=== PATIENT | female | born 1995 | race Caucasian/White ===

== ENCOUNTER 2018-08-04 21:59 | Emergency (ER) | payer BC, MEDICAID ==
[2018-08-04] MEDS ORDERED: Sodium Chloride 0.9% 1,000 ML IV ONE (22:34)
[2018-08-04] MEDS ORDERED: Ondansetron 4 MG/2 ML SDV IVPUSH ONE (22:34)
--- NOTE | 2018-08-04 22:37 | EDM.PDOC ---
ED HPI GENERAL MEDICAL PROBLEM - General Chief Complaint: Gastrointestinal Problem Stated Complaint: VOMITING AND DIARRHEA Time Seen by Provider: 08/04/18 22:33 - History of Present Illness INITIAL COMMENTS - FREE TEXT/NARRATIVE: HISTORY AND PHYSICAL: History of present illness: Patient 23-year-old female presents with concern of nausea vomiting and diarrhea 2 days no fever chills no vaginal discharge or irregular bleeding urinary symptoms or other complaints patient denies Review of systems: As per history of present illness and below otherwise all systems reviewed and negative. Past medical history: As per history of present illness and as reviewed below otherwise noncontributory. Surgical history: As per history of present illness and as reviewed below otherwise noncontributory. Social history: No reported history of drug or alcohol abuse. Family history: As per history of present illness and as reviewed below otherwise noncontributory. Physical exam: HEENT: Atraumatic, normocephalic, pupils reactive, negative for conjunctival pallor or scleral icterus, mucous membranes dry, throat clear, neck supple, nontender, trachea midline. Lungs: Clear to auscultation, breath sounds equal bilaterally, chest nontender. Heart: S1S2, regular, negative for clicks, rubs, or JVD. Abdomen: Soft, nondistended, nontender. Negative for masses or hepatosplenomegaly. Negative for costovertebral tenderness. Pelvis: Stable nontender. Genitourinary: Deferred. Rectal: Deferred. Extremities: Atraumatic, negative for cords or calf pain. Neurovascular unremarkable. Neuro: Awake, alert, oriented. Cranial nerves II through XII unremarkable. Cerebellum unremarkable. Motor and sensory unremarkable throughout. Exam nonfocal. Diagnostics: UA hCG CBC CMP Therapeutics: Saline 1 L bolus Zofran 4 mg IV Impression: #! gastroenteritis #2 dehydration Definitive disposition and diagnosis as appropriate pending reevaluation and review of above. Abdomen Pain Score (Numeric/FACES): 9 - Related Data Allergies Allergy/AdvReac Type Severity Reaction Status Date / Time No Known Allergies Allergy Verified 08/04/18 22:26 Home Meds: Home Meds . [No Known Home Meds] 08/04/18 [History] Past Medical History HEENT History: Reports: None Cardiovascular History: Reports: None Respiratory History: Reports: None Gastrointestinal History: Reports: None Genitourinary History: Reports: None [employer] History: Reports: Musculoskeletal History: Reports: None Neurological History: Reports: None Psychiatric History: Reports: None Endocrine/Metabolic History: Reports: None Hematologic History: Reports: None Immunologic History: Reports: None Oncologic (Cancer) History: Reports: None Dermatologic History: Reports: None - Infectious Disease History Infectious Disease History: Reports: None - Past Surgical History Head Surgeries/Procedures: Reports: None Social & Family History - Family History Family Medical History: Noncontributory - Tobacco Use Smoking Status *Q: Never Smoker Second Hand Smoke Exposure: No - Caffeine Use Caffeine Use: Reports: None - Recreational Drug Use Recreational Drug Use: No ED ROS GENERAL - Review of Systems Review Of Systems: ROS reveals no pertinent complaints other than HPI. ED EXAM, GENERAL - Physical Exam Exam: See Below (The dictation) Course - Vital Signs Last Recorded V/S: Last Vital Signs Temp 36.1 C 08/04/18 22:21 Pulse 100 08/04/18 22:21 Resp 18 08/04/18 22:21 BP 118/69 08/04/18 22:21 Pulse Ox 98 08/04/18 22:21 - Orders/Labs/Meds Orders: Active Orders 24 hr Category Date Time Status CBC WITH AUTO DIFF [HEME] Stat Lab 08/04/18 22:34 Ordered COMPREHENSIVE METABOLIC PN,CMP [CHEM] Stat Lab 08/04/18 22:34 Ordered HCG QUALITATIVE,SERUM [CHEM] Stat Lab 08/04/18 22:34 Ordered UA RFX HOLLIE AND CULT IF INDIC [URIN] Stat Lab 08/04/18 22:34 Ordered Ondansetron [Zofran] Med 08/04/18 22:34 Once 4 mg IVPUSH ONETIME ONE Sodium Chloride 0.9% [Normal Saline] 1,000 ml Med 08/04/18 22:34 Ordered IV STAT Medication Orders Sodium Chloride (Normal Saline) 1,000 mls @ 999 mls/hr IV STAT ONE Stop: 08/04/18 23:34 Ondansetron HCl (Zofran) 4 mg IVPUSH ONETIME ONE Stop: 08/04/18 22:35 Meds: Medications Generic Name Dose Route Start Last Admin Trade Name Freq PRN Reason Stop Dose Admin Sodium Chloride 1,000 mls @ 999 mls/hr 08/04/18 22:34 Normal Saline IV 08/04/18 23:34 STAT ONE Ondansetron HCl 4 mg 08/04/18 22:34 Zofran IVPUSH 08/04/18 22:35 ONETIME ONE Departure - Departure Time of Disposition: 22:36 Disposition: Home, Self-Care 01 Condition: Good Clinical Impression: Gastroenteritis, Dehydration - Discharge Information Referrals: PCP,None [Primary Care Provider] - Additional Instructions: The following information is given to patients seen in the emergency department who are being discharged to home. This information is to outline your options for follow-up care. We provide all patients seen in our emergency department with a follow-up referral. The need for follow-up, as well as the timing and circumstances, are variable depending upon the specifics of your emergency department visit. If you don't have a primary care physician on staff, we will provide you with a referral. We always advise you to contact your personal physician following an emergency department visit to inform them of the circumstance of the visit and for follow-up with them and/or the need for any referrals to a consulting specialist. The emergency department will also refer you to a specialist when appropriate. This referral assures that you have the opportunity for followup care with a specialist. All of these measure are taken in an effort to provide you with optimal care, which includes your followup. Under all circumstances we always encourage you to contact your private physician who remains a resource for coordinating your care. When calling for followup care, please make the office aware that this follow-up is from your recent emergency room visit. If for any reason you are refused follow-up, please contact the [facility] emergency department at and asked to speak to the emergency department charge nurse. Push fluids clear liquids as discussed avoid dairy 72 hours follow-up primary medical doctor as needed as discussed and return as needed as discussed - My Orders Last 24 Hours: My Active Orders 08/04/18 22:34 CBC WITH AUTO DIFF [HEME] Stat COMPREHENSIVE METABOLIC PN,CMP [CHEM] Stat HCG QUALITATIVE,SERUM [CHEM] Stat UA RFX HOLLIE AND CULT IF INDIC [URIN] Stat Ondansetron [Zofran] 4 mg IVPUSH ONETIME ONE Sodium Chloride 0.9% [Normal Saline] 1,000 ml IV STAT - Assessment/Plan Last 24 Hours: My Active Orders 08/04/18 22:34 CBC WITH AUTO DIFF [HEME] Stat COMPREHENSIVE METABOLIC PN,CMP [CHEM] Stat HCG QUALITATIVE,SERUM [CHEM] Stat UA RFX HOLLIE AND CULT IF INDIC [URIN] Stat Ondansetron [Zofran] 4 mg IVPUSH ONETIME ONE Sodium Chloride 0.9% [Normal Saline] 1,000 ml IV STAT
[2018-08-04] MEDS ORDERED: Ondansetron 4 MG/2 ML SDV ONE (22:46)
[2018-08-04 23:18] LABS: CHLORIDE,CL 104 mmol/L (98-107); SODIUM,NA 138 mmol/L (136-145)
== END 2018-08-05 00:08 | disposition home or self-care (01) ==
LOC: MW.ED 21:59
DX: K52.9 Noninfective gastroenteritis and colitis, unspecified (principal)
CPT/HCPCS: 36415; 80053; 81001; 84703; 85025; 96361; 96374; 99284; J2405; J7040; 99283

== ENCOUNTER 2019-06-08 13:08 | Emergency (ER) | payer MEDICAID ==
--- NOTE | 2019-06-08 13:58 | EDM.PDOC ---
ED HPI GENERAL MEDICAL PROBLEM - General Chief Complaint: ENT Problem Stated Complaint: EARACHE Time Seen by Provider: 06/08/19 13:58 Source of Information: Reports: Patient History Limitations: Reports: No Limitations - History of Present Illness INITIAL COMMENTS - FREE TEXT/NARRATIVE: HISTORY AND PHYSICAL: History of present illness: Patient is a 24-year-old female who presents to the emergency room with complaints of right ear pain x5 days. She states she has been using over-the- counter products along with warm compresses which have not alleviated any discomfort. Patient denies any fever, chills, headache, change in vision, syncope or near syncope. Denies any chest pain, back pain, shortness of breath or cough. Denies any GI or symptoms. Is any injury, trauma or falls. Review of systems: As per history of present illness and below otherwise all systems reviewed and negative. Past medical history: As per history of present illness and as reviewed below otherwise noncontributory. Surgical history: As per history of present illness and as reviewed below otherwise noncontributory. Social history: See social history for further information Family history: As per history of present illness and as reviewed below otherwise noncontributory. Physical exam: General: Well-developed and well-nourished 24-year-old female. Alert and oriented. Nontoxic-appearing and in no acute distress. HEENT: Atraumatic, normocephalic, pupils equal and reactive bilaterally, negative for conjunctival pallor or scleral icterus, mucous membranes moist, right TM is erythematous with dull light reflex and no bulging, left TMs normal , throat clear, neck supple, nontender, trachea midline. No drooling or trismus noted. No meningeal signs. No hot potato voice noted. Lungs: Clear to auscultation, breath sounds equal bilaterally. Heart: S1S2, regular rate and rhythm without overt murmur Abdomen: Soft, nondistended, nontender. Skin: Intact, warm, dry. No lesions or rashes noted. Extremities: Atraumatic, moves all extremities per self without difficulty or deficits, negative for cords or calf pain. Neurovascular unremarkable. Neuro: Awake, alert, oriented. Cranial nerves II through XII unremarkable. Cerebellum unremarkable. Motor and sensory unremarkable throughout. Exam nonfocal. Notes: Medication and supportive care measures were reviewed and discussed. Voices understanding and is agreeable to plan of care. Denies any further questions or concerns at this time. Diagnostics: None Therapeutics: None Prescription: Augmentin Impression: Otitis Media, Right Plan: 1. Please use Tylenol and/or Ibuprofen as needed for pain and fever management. 2. Get plenty of Rest. Encourage fluids to prevent dehydration. 3. Please follow up with your primary care provider. Return to the ED as needed as discussed. Definitive disposition and diagnosis as appropriate pending reevaluation and review of above. Right Ear Pain Score (Numeric/FACES): 2 - Related Data Allergies Allergy/AdvReac Type Severity Reaction Status Date / Time No Known Allergies Allergy Verified 06/08/19 13:49 Home Meds: Home Meds Amoxicillin/Clavulanate K [Augmentin 875-125 MG] 1 tab PO BID 10 Days #20 tablet 06/08/19 [Rx] Past Medical History HEENT History: Reports: None Cardiovascular History: Reports: None Respiratory History: Reports: None Gastrointestinal History: Reports: None Genitourinary History: Reports: None [employer] History: Reports: Musculoskeletal History: Reports: None Neurological History: Reports: None Psychiatric History: Reports: None Endocrine/Metabolic History: Reports: None Hematologic History: Reports: None Immunologic History: Reports: None Oncologic (Cancer) History: Reports: None Dermatologic History: Reports: None - Infectious Disease History Infectious Disease History: Reports: Chicken Pox - Past Surgical History Head Surgeries/Procedures: Reports: None Female Surgical History: Reports: Section Social & Family History - Family History Family Medical History: Noncontributory - Tobacco Use Smoking Status *Q: Never Smoker - Caffeine Use Caffeine Use: Reports: Coffee - Recreational Drug Use Recreational Drug Use: No ED ROS ENT - Review of Systems Review Of Systems: Comprehensive ROS is negative, except as noted in HPI. ED EXAM, ENT - Physical Exam Exam: See Below (See dictation) Course - Vital Signs Last Recorded V/S: Last Vital Signs Temp 97.1 F 06/08/19 13:50 Pulse 69 06/08/19 13:50 Resp 18 06/08/19 13:50 BP 133/63 06/08/19 13:50 Pulse Ox 98 06/08/19 13:50 Departure - Departure Time of Disposition: 14:07 Disposition: Home, Self-Care 01 Clinical Impression: Otitis media Qualifiers: Otitis media type: suppurative Chronicity: acute Laterality: right Recurrence: non-recurrent Spontaneous tympanic membrane rupture: without spontaneous rupture Qualified Code(s): H66.001 - Acute suppurative otitis media without spontaneous rupture of ear drum, right ear - Discharge Information Prescriptions: Amoxicillin/Clavulanate K [Augmentin 875-125 MG] 1 tab PO BID 10 Days #20 tablet Instructions: Otitis Media, Adult, [id number] Referrals: Doug De La Cruz MD [Primary Care Provider] - Forms: ED Department Discharge Additional Instructions: The following information is given to patients seen in the emergency department who are being discharged to home. This information is to outline your options for follow-up care. We provide all patients seen in our emergency department with a follow-up referral. The need for follow-up, as well as the timing and circumstances, are variable depending upon the specifics of your emergency department visit. If you don't have a primary care physician on staff, we will provide you with a referral. We always advise you to contact your personal physician following an emergency department visit to inform them of the circumstance of the visit and for follow-up with them and/or the need for any referrals to a consulting specialist. The emergency department will also refer you to a specialist when appropriate. This referral assures that you have the opportunity for follow-up care with a specialist. All of these measure are taken in an effort to provide you with optimal care, which includes your follow-up. Under all circumstances we always encourage you to contact your private physician who remains a resource for coordinating your care. When calling for follow-up care, please make the office aware that this follow-up is from your recent emergency room visit. If for any reason you are refused follow-up, please contact the [facility] Emergency Department at and asked to speak to the emergency department charge nurse. [facility] [address] [place] [id number] [address] [address] 1. Please use Tylenol and/or Ibuprofen as needed for pain and fever management. 2. Get plenty of Rest. Encourage fluids to prevent dehydration. 3. Please follow up with your primary care provider. Return to the ED as needed as discussed. Sepsis Event Note - Evaluation Sepsis Screening Result: No Definite Risk - Focused Exam Vital Signs: Vital Signs Temp Pulse Resp BP Pulse Ox 06/08/19 13:50 97.1 F 69 18 133/63 98 Date Exam was Performed: 06/08/19 Time Exam was Performed: 14:10
== END 2019-06-08 14:12 | disposition home or self-care (01) ==
LOC: MW.ED 13:08
DX: H66.001 Acute suppurative otitis media without spontaneous rupture of ear drum, right ear (principal)
CPT/HCPCS: 99282; 99283

== ENCOUNTER 2024-02-02 09:43 | Inpatient (IN) | payer BC ==
[2024-02-02 10:41] LABS: APPEARANCE,URINE CLEAR; BILIRUBIN,URINE NEGATIVE (NEGATIVE); COLOR,URINE YELLOW; GLUCOSE,URINE NEGATIVE (NEGATIVE); KETONES,URINE NEGATIVE (NEGATIVE); LEUKOCYTE ESTERASE,URINE NEGATIVE (NEGATIVE); NITRITE,URINE NEGATIVE (NEGATIVE); OCCULT BLOOD,URINE TRACE-INTACT (NEGATIVE); PROTEIN,URINE 30 mg/dL (NEGATIVE); UROBILINOGEN,URINE 0.2 EU/dL (<2.0)
[2024-02-02] MEDS ORDERED: Acetaminophen/oxyCODONE 325-5 MG Tab PO PRN ×3 (11:04→15:50)
[2024-02-02] MEDS ORDERED: Albuterol 0.083% 2.5 MG/3 ML Neb Soln NEB PRN (11:04)
[2024-02-02] MEDS ORDERED: Metoclopramide 10 MG/2 ML SDV IVPUSH PRN (11:04)
[2024-02-02] MEDS ORDERED: fentaNYL 50 MCG/ML SDV IVPUSH PRN (11:04)
[2024-02-02] MEDS ORDERED: Ondansetron 4 MG/2 ML SDV IVPUSH PRN ×2 (11:04)
[2024-02-02] MEDS ORDERED: Naloxone 0.4 MG/ML SDV IVPUSH PRN (11:04)
[2024-02-02] MEDS ORDERED: Nalbuphine 10 MG/1 ML Vial IVPUSH PRN (11:04)
[2024-02-02] MEDS ORDERED: Phenylephrine HCl In 0.9% NaCl 1 MG/10 ML Syringe IVPUSH PRN (11:04)
[2024-02-02] MEDS ORDERED: fentaNYL 100 MCG/2 ML SDV IVPUSH PRN (11:04)
[2024-02-02] MEDS ORDERED: Morphine 2 MG/ML SYRINGE IVPUSH PRN (11:04)
[2024-02-02] MEDS ORDERED: diphenhydrAMINE 50 MG/ML SDV IVPUSH PRN (11:04)
[2024-02-02] MEDS ORDERED: droPERidol 5 MG/2 ML SDV IVPUSH PRN (11:04)
[2024-02-02] MEDS ORDERED: HYDROmorphone 1 MG/ML Syringe IVPUSH PRN (11:04)
[2024-02-02] MEDS ORDERED: ePHEDrine 50 MG/ML SDV ONE (11:12)
[2024-02-02] MEDS ORDERED: Phenylephrine 1% 10 MG/ML SDV ONE (11:12)
[2024-02-02] MEDS ORDERED: Calcium Chloride 10% 1 GM/10 ML Syringe ONE (11:12)
[2024-02-02] MEDS ORDERED: Oxytocin 10 Units/1 ML SDV ONE ×2 (11:12→16:38)
[2024-02-02] MEDS ORDERED: Morphine PF 10 MG/10 ML SDV ONE (11:12)
[2024-02-02] MEDS ORDERED: Ropivacaine 0.5% 5 MG/ML 30 ML SDV ONE (11:12)
[2024-02-02] MEDS ORDERED: Tranexamic Acid 1,000 MG/10 ML Vial ONE (11:12)
[2024-02-02] MEDS ORDERED: ceFAZolin 2 GM Vial ONE (11:12)
[2024-02-02] MEDS ORDERED: dexmedeTOMIDine HCl 200 MCG/2 ML SDV ONE (11:12)
[2024-02-02] MEDS ORDERED: Oxytocin/0.9 % Sodium Chloride 30 UNIT/500 ML BAG IV SCH (11:45)
[2024-02-02] MEDS ORDERED: Sodium Chloride 0.9% 10 ML Syringe FLUSH PRN (11:45)
[2024-02-02] MEDS ORDERED: Sodium Chloride 0.9% 2.5 ML Syringe FLUSH PRN (11:45)
[2024-02-02] MEDS ORDERED: Sodium Chloride 0.9% 20 ML SDV IV PRN (11:45)
[2024-02-02] MEDS: Lactated Ringers 1,000 ML IV SCH (11:47)
[2024-02-02] MEDS ORDERED: Dexamethasone 4 MG/ML 5 ML MDV ONE (11:55)
[2024-02-02] MEDS: Ampicillin 2 GM in Sodium Chloride 0.9% 100 ML IV ONE (12:23)
[2024-02-02 12:46] LABS: HEMATOCRIT 38.5 % (37.0-47.0); MEAN CORPUSCULAR HEMOGLOBIN 29.5 pg (28.0-32.0); MEAN CORPUSCULAR HGB CONC 33.8 g/dL (32.0-36.0); MEAN CORPUSCULAR VOLUME 87.5 fL (83.0-99.0); MEAN PLATELET VOLUME 11.5 fL (9.4-12.3); PLATELET COUNT,PLT 261 K/uL (150-400); WHITE BLOOD CELL COUNT,WBC 6.64 K/uL (3.9-11.3)
[2024-02-02] MEDS ORDERED: Temazepam 15 MG Cap PO PRN (15:50)
[2024-02-02] MEDS ORDERED: Bisacodyl 10 MG Supp RECTAL PRN (15:50)
[2024-02-02] MEDS ORDERED: Misoprostol 200 MCG Tab RECTAL PRN (15:50)
[2024-02-02] MEDS ORDERED: Methylergonovine 0.2 MG/1 ML Amp IM PRN (15:50)
[2024-02-02] MEDS ORDERED: Lanolin 100% Cream 7 GM Tube TOP PRN (15:50)
[2024-02-02] MEDS ORDERED: Lactated Ringers 1,000 ML IV SCH (16:00)
[2024-02-02 17:34] LABS: PH,UMBILICAL ARTERIAL 7.255 (7.18-7.38); PH,UMBILICAL VENOUS 7.221 (7.25-7.45)
[2024-02-02] MEDS: Ketorolac 30 MG/ML SDV IVPUSH SCH (21:11)
[2024-02-02] MEDS: Citric Acid/Sodium Citrate Solution 30 ML Cup PO ONE (21:12)
[2024-02-02] MEDS: Docusate Sodium 100 MG Cap PO SCH (22:02)
[2024-02-02] MEDS: Ferrous Sulfate 325 MG Tab PO SCH (22:02)
[2024-02-02] MEDS: Acetaminophen 1,000 MG in Premix Bag 1 BAG IV SCH (22:05)
[2024-02-03] MEDS: Acetaminophen 1,000 MG in Premix Bag 1 BAG IV SCH (06:00)
[2024-02-03 06:06] LABS: HEMATOCRIT 33.8 % (37.0-47.0); HEMOGLOBIN 11.4 g/dL (12.0-16.0); MEAN CORPUSCULAR HEMOGLOBIN 29.5 pg (28.0-32.0); MEAN CORPUSCULAR HGB CONC 33.7 g/dL (32.0-36.0); MEAN CORPUSCULAR VOLUME 87.6 fL (83.0-99.0); MEAN PLATELET VOLUME 10.1 fL (9.4-12.3); PLATELET COUNT,PLT 273 K/uL (150-400); RED BLOOD CELL COUNT 3.86 M/uL (4.10-5.30); WHITE BLOOD CELL COUNT,WBC 9.89 K/uL (3.9-11.3)
[2024-02-03] MEDS: Prenatal Multivitamin with Calcium/Folic Acid/Iron Tab PO SCH (09:35)
[2024-02-03] MEDS: Ketorolac 30 MG/ML SDV IVPUSH SCH (22:23)
[2024-02-04] MEDS: Ibuprofen 800 MG Tab PO PRN (05:18)
[2024-02-04] MEDS: Acetaminophen 500 MG Tab PO PRN (11:40)
== END 2024-02-05 11:25 | disposition home or self-care (01) | DRG 540 ==
LOC: MW.OBCHECK 09:43 → MW.OB 09:43 → MW.OBCHECK 16:13 → MW.OB 23:44
PROVIDERS: ADMIT Obstetrics & Gynecology; ATTEND Obstetrics & Gynecology
PROC: 10D00Z1 Extraction of Products of Conception, Low, Open Approach (ICD-10-PCS; principal; 2024-02-02 15:45)
DX: O42.013 Preterm premature rupture of membranes, onset of labor within 24 hours of rupture, third trimester (principal); O34.211 Maternal care for low transverse scar from previous cesarean delivery; O99.892 Other specified diseases and conditions complicating childbirth; R73.03 Prediabetes; Z3A.36 36 weeks gestation of pregnancy; Z37.0 Single live birth
CPT/HCPCS: 01961; 36415; 59025; 59514; 64999; 81003; 82803; 84112; 85027; 86592; 86850; 86900; 86901; A9270-GY; J0131; J0290; J0690; J1100; J1885; J2274; J2371; J2590; J2795; J3490; J7120

== ENCOUNTER 2024-03-12 14:22 | Emergency (ER) | payer BC ==
[2024-03-12 16:44] LABS: BASOPHILS ABSOLUTE AUTO 0.04 K/uL (0.00-0.20); BASOPHILS PERCENT AUTO 0.6 % (0.0-1.0); EOSINOPHILS ABSOLUTE AUTO 0.16 K/uL (0.00-0.45); EOSINOPHILS PERCENT AUTO 2.4 % (0.0-6.0); HEMATOCRIT 35.9 % (37.0-47.0); HEMOGLOBIN 11.9 g/dL (12.0-16.0); IMMATURE GRAN ABSOLUTE AUTO 0.02 K/uL (0.00-0.05); IMMATURE GRAN PERCENT AUTO 0.3 % (0.0-0.4); LYMPHOCYTES ABSOLUTE AUTO 2.15 K/uL (1.00-4.80); LYMPHOCYTES PERCENT AUTO 32.1 % (24.0-44.0); MEAN CORPUSCULAR HEMOGLOBIN 29.5 pg (28.0-32.0); MEAN CORPUSCULAR HGB CONC 33.1 g/dL (32.0-36.0); MEAN CORPUSCULAR VOLUME 89.1 fL (83.0-99.0); MEAN PLATELET VOLUME 9.3 fL (9.4-12.3); MONOCYTES ABSOLUTE AUTO 0.47 K/uL (0.00-0.80); NEUTROPHILS ABSOLUTE AUTO 3.86 K/uL (1.80-7.70); NEUTROPHILS PERCENT AUTO 57.6 % (41.0-71.0); PLATELET COUNT,PLT 275 K/uL (150-400); RED BLOOD CELL COUNT 4.03 M/uL (4.10-5.30)
[2024-03-12 17:13] LABS: A/G RATIO 0.9 (0.9-1.6); ALBUMIN 3.6 g/dL (3.4-5.0); BILIRUBIN TOTAL 0.4 mg/dL (0.2-1.0); CARBON DIOXIDE,CO2 28.2 mmol/L (21.0-32.0); CREATININE 0.8 mg/dL (0.6-1.0); EST CRCL DRUG DOSING (CG) 81.33 mL/min; POTASSIUM,K 3.6 mmol/L (3.5-5.1); PROTEIN TOTAL,TP 7.7 g/dL (6.4-8.2)
== END 2024-03-12 20:05 | disposition home or self-care (01) ==
LOC: MW.ED 14:22
DX: O72.2 Delayed and secondary postpartum hemorrhage (principal); Z91.048 Other nonmedicinal substance allergy status; Z75.8 Other problems related to medical facilities and other health care
CPT/HCPCS: 36415; 76830; 76830-26; 80053; 85025; 99283; 99284